=== PATIENT | male | born 1975 | race Caucasian/White ===

== ENCOUNTER 2019-04-03 09:23 | Day surgery (SDC) | payer OTHER ==
[2019-04-01 11:37] VITALS: BMI 30.7
[~2019-04-03 09:23] MED LIST: LACTATED RINGERS 1,000 ML IV SCH
[2019-04-03] MEDS ORDERED: LIDOCAINE 1% 20 ML VIAL (10MG/ML) FOR IV START INTRADERMA ONE (10:06)
[2019-04-03] MEDS ORDERED: LIDOCAINE 1% INJ 10MG/ML (20 ML MDV) ONE (10:44)
[2019-04-03] MEDS ORDERED: PROPOFOL 10 MG/ML 20 ML VIAL IV ONE (10:44)
--- NOTE | 2019-04-03 10:47 | P.GSHP ---
History of Present Illness H&P Date: 04/03/19 Chief Complaint: GERD This a 44-year-old male who presents today for EGD. Patient issues with GERD. He is been on Protonix 1 year he has Past Medical History Past Medical History: GERD/Reflux Additional Past Medical History / Comment(s): sometimes feels like lump in throat, supposed to see sleeper cutter soon to check some "nodes" in lungs History of Any Multi-Drug Resistant Organisms: None Reported Additional Past Surgical History / Comment(s): sinus surg., repair left orbital fx-plates Past Anesthesia/Blood Transfusion Reactions: No Reported Reaction Smoking Status: Never smoker Medications and Allergies Home Medications Medication Instructions Recorded Confirmed Type Fish Oil/Dha/Epa [Fish Oil 1,200 1 each PO DAILY 04/01/19 04/03/19 History mg Fish Oil] Pantoprazole Sodium [Protonix] 40 mg PO BID 04/01/19 04/03/19 History Allergies Allergy/AdvReac Type Severity Reaction Status Date / Time No Known Allergies Allergy Verified 04/01/19 11:18 Surgical - Exam Vital Signs Pulse Resp BP Pulse Ox 83 18 132/92 98 04/03/19 09:53 04/03/19 09:53 04/03/19 09:53 04/03/19 09:53 - General well developed, well nourished, no distress - Eyes PERRL - ENT normal pinna - Neck no masses - Respiratory normal expansion - Cardiovascular Rhythm: regular - Abdomen Abdomen: soft, non tender Assessment and Plan Assessment: GERD. We'll perform EGD.
--- NOTE | 2019-04-03 10:59 | P.OP ---
Date of Procedure: 04/03/19 Preoperative Diagnosis: GERD Postoperative Diagnosis: Antral gastritis Sliding hiatal hernia Esophagitis Procedure(s) Performed: EGD Anesthesia: MAC Surgeon: Rickie Mcnulty Pathology: other (Antrum, esophagus) Condition: stable Disposition: PACU Description of Procedure: Patient's placed on the endoscopy table in the lateral position. He received IV sedation. The gastroscope placed oropharynx passed in the esophagus into the stomach. Scope some placed through the pylorus. The first and second portion of the duodenum appeared normal. Scope was then brought back the antrum this. Mildly inflamed. A biopsies performed. Scope was then retroflexed and remainder of the stomach appeared normal. The patient had a moderate size sliding hiatal hernia. The GE junction was at 38 cm. The distal esophagus appeared inflamed. A biopsies performed. The proximal esophagus appeared normal. Scope was withdrawn for patient
[2019-04-03 11:02] VITALS: RESP 16
[2019-04-03 11:18] VITALS: BP 138/98; PULSE 85
== END 2019-04-03 11:24 | disposition home or self-care (01) ==
LOC: ORWHC2ENDO 09:23
PROVIDERS: ATTEND Surgery
DX: K21.0 Gastro-esophageal reflux disease with esophagitis (principal); K29.70 Gastritis, unspecified, without bleeding; K44.9 Diaphragmatic hernia without obstruction or gangrene; K31.9 Disease of stomach and duodenum, unspecified; Z98.890 Other specified postprocedural states
CPT/HCPCS: 43239; J2001; J2704; 88305